=== PATIENT | male | born 1955 | race Caucasian/White ===

== ENCOUNTER 2020-05-15 00:43 | Observation (INO) ==
[2020-05-15] MEDS ORDERED: ACETAMINOPHEN 325 MG TABLET PO PRN (01:03)
[2020-05-15] MEDS ORDERED: oxyCODONE HCL/ACETAMINOPHEN 1 TAB TABLET PO PRN (01:13)
[2020-05-15] MEDS ORDERED: ENOXAPARIN SODIUM 40 MG/0.4 ML SYRG SC SCH (01:15)
[2020-05-15] MEDS ORDERED: NITROGLYCERIN 0.4 MG/TAB BTL SL PRN (01:33)
--- NOTE | 2020-05-15 01:40 | HP ---
Chief Complaint - Chief Complaint Date of Service: 05/15/20 Time of Service: 01:21 Chief Complaint: I cannot breathe History of Present Illness: 65-year-old male with past medical history of COPD, former smoker, CHF, CAD, chronic pain, hypertension, atrial fibrillation, obesity, hyperlipidemia, was transferred to our facility from [facility] for treatment of a COPD exacerbation. Patient went to the ER at [facility] due to worsening shortness of breath despite his usual nasal cannula over the past 3 days. Patient has been seen in the ER frequently for the same symptoms and usually ends up being hospitalized and ending up on BiPAP, ERP reports on one occasion he had to be intubated for respiratory failure. The patient came in earlier yesterday with respiratory issues that consisted of dyspnea and respiratory failure, he was started on a BiPAP machine which he is tolerating without any issues. Normally, the patient uses nasal cannula at 3 L during the day and at night he uses a BiPAP machine. He reports his symptoms were not improving with at home therapies such as his inhalers and breathing treatments so then he came to the ER. He denies any fever at the moment and was swabbed for COVID-19 which was negative. The patient has a history of CHF but his BNP was only 295, it is difficult to discern whether or not he has crackles and he only has mild pedal edema. His clinical picture is more consistent with a COPD exacerbation than a decompensated CHF, however mild diuresis would be beneficial to decrease the preload and to make breathing easier for the patient. So we will order multiple doses of furosemide to be administered during hospitalization. Medical History (Last Updated 05/15/20 @ 00:56 by Pat Brizuela RN) Atrial fibrillation COPD (chronic obstructive pulmonary disease) Chronic pain Heart failure Hyperlipidemia Hypertension Macrocytic anemia Obesity Respiratory failure Peds Patient Hx - Developmental: No Pertinent Hx Peds Patient Hx - Medical: No Pertinent Hx Peds Patient Hx - Cardiac/Respiratory: No Pertinent Hx Peds Patient Hx - Surgical: No Surgical History Patient History - Cancer: No Hx of Cancer Review Of Systems (GEN) - Review of Systems Generalized/Overall Review: Present: No Symptoms Reported EENTM: Present: No Symptoms Reported Respiratory: Present: Shortness of Breath Cardiac: Present: No Symptoms Reported Abdominal: Present: No Symptoms Reported Genitourinary: Present: No Symptoms Reported Musculoskeletal: Present: No Symptoms Reported Neurological: Present: No Symptoms Reported Skin: Present: No Symptoms Reported Endocrine: Present: No Symptoms Reported Allergies/Adverse Reactions: Allergies Allergy/AdvReac Type Severity Reaction Status Date / Time amoxicillin Allergy Unknown Verified 05/15/20 00:57 morphine Allergy Verified 05/15/20 00:57 Home Medications: HOME MEDICATIONS Atorvastatin Calcium 80 mg PO DAILY 05/15/20 [Last Taken Unknown] Exam - Exam Constitutional: Present: Alert, Oriented x3, Cooperative, Well developed, Well nourished, No distress, Obese ENT Exam: Present: normal ENT inspection, hearing grossly normal Eye Exam: bilateral eye: normal inspection, PERRL, EOMI Neck: Present: non-tender, full range of motion, supple, normal inspection, trachea midline Back Exam: Present: normal inspection, no CVA tenderness, no vertebral tenderness Breasts: Present: Exam deferred Respiratory: Present: respiratory distress - Patient is currently on BiPAP for dyspnea, decreased breath sounds Cardiovascular/Chest: Present: normal peripheral pulses, no chest tenderness, no gallop, no JVD, no murmur, irregularly irregular, edema - 1+ pedal edema bilaterally Peripheral Pulses: dorsalis-pedis (R): 3+, dorsalis-pedis (L): 3+ Abdomen: Present: Normal bowel sounds, soft, nontender, nondistended, no rebound tenderness, no hepatospenomegaly, no masses, obese /Rectal: Present: Exam deferred Extremity: Present: normal range of motion, non-tender, no calf tenderness, normal capillary refill, pedal edema Skin Exam: Present: normal color, warm/dry, no cyanosis Lymphatic: Present: no adenopathy Neurologic: Present: 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 He is currently on a BiPAP machine which he is tolerating without any issues, we will keep him on the machine overnight and see how he does. Attempt to wean in the morning if appropriate will be made. In the meantime we will treat him with multiple doses of furosemide in order to diurese the patient given the pedal edema presentation. Will also be treated with breathing treatments [id number] and other to optimize his respiratory function. - Assessment/Plan (1) COPD exacerbation Problem: Acute (2) CHF (congestive heart failure) Problem: Acute (3) Atrial fibrillation Problem: Chronic (4) Hyperlipemia Problem: Chronic (5) Chronic pain Problem: Chronic (6) Former smoker Problem: Chronic (7) Obesity Problem: Chronic (8) Respiratory failure with hypercapnia Problem: Acute (9) Acute respiratory acidosis Problem: Acute
[2020-05-15] MEDS: ALBUTEROL SULFATE/IPRATROPIUM 3 ML NEBU IH SCH ×6 (02:49→22:43)
[2020-05-15] MEDS ORDERED: LEVOFLOXACIN 500 MG TABLET PO ONE (03:00)
[2020-05-15] MEDS: FUROSEMIDE 10 MG/ML VIAL IV SCH ×2 (03:23→13:40)
[2020-05-15] MEDS: METHYLPREDNISOLONE SOD SUCC/PF 125 MG/2 ML VIAL IV SCH ×2 (03:24→10:10)
[2020-05-15 06:20] LABS: Hematocrit 27.2 % (42.0-52.0); Hemoglobin 8.1 gm/dL (13.5-18.0); Mean Cell Volume 98.6 fl (78-100); Mean Corpuscular Hemoglobin 29.3 pg (27-31); Mean Corpuscular Hgb Conc 29.8 g/dl (32-36); Mean Platelet Volume 8.9 fl (8-11.3); Neutrophil # 5.6 K/mm3 (1.3-6.0); Neutrophil % 90.8 % (42-75.0); Platelet Count 158 K/mm3 (150-450); Red Blood Count 2.76 M/mm3 (4.7-6.0); Red Cell Distribution Width 16.4 % (11.5-14.0); White Blood Count 6.1 K/mm3 (4.0-10.5)
[2020-05-15 06:38] LABS: Albumin * 2.6 gm/dl (3.4-5.0); BUN/Creatinine Ratio 19.2 (9.0-21.6); Bilirubin, Total 0.3 mg/dL (0.0-1.1); Ca. Corrected For Albumin 8.8 mg/dL (8.4-10.2); Carbon Dioxide 37.3 mmol/L (24-32.6); Potassium 4.3 mmol/L (3.4-4.6)
[2020-05-15] MEDS ORDERED: METHYLPREDNISOLONE SOD SUCC/PF 125 MG/2 ML VIAL IV SCH (08:30)
[2020-05-15] MEDS ORDERED: SODIUM CHLORIDE 45 SPRAY BTL NS SCH (09:00)
[2020-05-15] MEDS: ROSUVASTATIN CALCIUM 20 MG TABLET PO SCH (09:15)
[2020-05-15] MEDS: APIXABAN 5 MG TABLET PO SCH ×2 (09:15→20:31)
[2020-05-15] MEDS: PANTOPRAZOLE SODIUM 20 MG TABLET.DR PO SCH ×2 (09:15→20:33)
[2020-05-15] MEDS: SOTALOL HCL 80 MG TABLET PO SCH ×2 (09:18→20:31)
[2020-05-15] MEDS ORDERED: ALBUTEROL SULFATE 2.5 MG/0.5 ML VIAL.NEB IH PRN (11:43)
--- NOTE | 2020-05-15 12:20 | DS ---
(1) COPD exacerbation Problem: Acute (2) CHF (congestive heart failure) Problem: Acute (3) Atrial fibrillation Problem: Chronic (4) Hyperlipemia Problem: Chronic (5) Chronic pain Problem: Chronic (6) Former smoker Problem: Chronic (7) Obesity Problem: Chronic (8) Respiratory failure with hypercapnia Problem: Acute (9) Acute respiratory acidosis Problem: Acute Date of Discharge:: 05/15/20 Hospital Course: 65-year-old male admitted for COPD exacerbation, respiratory failure, and decompensated CHF was evaluated at bedside this morning was found to be afebrile and in no acute distress. Patient's respiratory function appears to be improving, however attempts to wean him off the BiPAP this morning failed so we had to place him back on. He told me this morning normally he uses BiPAP at night and nasal cannula at 3 L during the day, however he does report occasionally needing to use the BiPAP during the day. ABG done this morning showed improvement in his blood gases, CO2 has decreased compared to when he arrived and appears to be around his baseline. His saturation is now normal. The patient has been treated with antibiotics, IV diuretics, and breathing treatments with DuoNeb [id number] and this treatment appears to have been beneficial. We will once again attempt to wean him off the BiPAP to see if we can get him down to his baseline, if we are successful we will discharge patient home with instructions to return to his normal treatment. He will also be provided with a prescription for additional days of p.o. antibiotics and p.o. steroids. He currently lives with his who helps with his activities of daily living and he also has home health that was previously established, will send instructions to all parties involved for better maintenance of the patient's health. The patient was instructed to follow-up with his PCP in 5 days. Procedures Performed: none Results and Findings: Lab Pending Results 05/15/20 01:30: pCO2 71.7 H*, pO2 94.8, HCO3 35.0 H, Total CO2 37.2 H, Base Excess 7.2 H, ABG pH 7.31 L, ABG O2 Sat (Measured) 96.3 05/15/20 02:45: pCO2 70.8 H*, pO2 114.6 H, HCO3 34.9 H, Total CO2 37.1 H, Base Excess 7.3 H, ABG pH 7.31 L, ABG O2 Sat (Measured) 97.6 05/15/20 05:55: WBC 6.1, RBC 2.76 L, Hgb 8.1 L, Hct 27.2 L, MCV 98.6, MCH 29.3, MCHC 29.8 L, RDW 16.4 H, Plt Count 158, MPV 8.9, Immature Gran % (Auto) 0.70 H, Immature Gran # (Auto) 0.04 H, Neutrophils % 90.8 H, Lymphocytes % 6.5 L, Monocytes % 1.6, Eosinophils % 0.2, Basophils % 0.2, Nucleated RBC % 0.0, Neutrophils # 5.6, Lymphocytes # 0.40 L, Monocytes # 0.1, Eosinophils # 0.0, Absolute Basophils 0.0 05/15/20 05:55: Sodium 140, Plasma Sodium 141, Potassium 4.3, Chloride 101, Carbon Dioxide 37.3 H, Anion Gap 6.0 L, BUN 25 H, Creatinine 1.30, Est GFR (Non- Af Amer) 59 L, BUN/Creatinine Ratio 19.2, Random Glucose 151 H, Calcium 8.0, Calcium Adj for Albumin 8.8, Total Bilirubin 0.3, AST 12, ALT 22, Alkaline Phosphatase 72, Total Protein 6.0 L, Albumin 2.6 L 05/15/20 08:15: pCO2 58.1 H, pO2 159.8 H, HCO3 34.2 H, Total CO2 36.0 H, Base Excess 7.2 H, ABG pH 7.39, ABG O2 Sat (Measured) 99.0 H Discharge Location: Home Disposition: Home self-care Condition: Stable Face to Face Encounter completed per CMS Guidelines: No Discharge Activity: Activity as tolerated Discharge Diet: Low salt Additional Patient Instructions (free text): [facility] at discharge- fax discharge summary, orders, and medication list and call report. Prescriptions (Any new or edited meds): Levofloxacin [Levaquin] 500 mg PO DAILY 3 Days #3 tab Transmission [place] pred[place] [Prednisone] See Taper PO DAILY #6 tab Complete Home Medications List: Complete Home Medication List: Albuterol Sulfate [Albuterol Sulfate 0.63 MG/3ML] 0.63 mg INHALATION Q4H PRN 05/15/20 Albuterol Sulfate [Proair HFA] 2 puff INHALATION Q6H PRN 05/15/20 Albuterol Sulfate/Ipratropium [Duoneb 2.5-0.5MG/3ML Soln] 3 ml INHALATION QID 05/15/20 Apixaban [Eliquis] 5 mg PO BID 05/15/20 Ascorbic Acid [Vitamin C] 500 mg PO DAILY 05/15/20 Atorvastatin Calcium 80 mg PO DAILY 05/15/20 Budesonide/Formoterol Fumarate [Symbicort 160-4.5 Mcg Inhaler] 2 puff INHALATION BID 05/15/20 Cyanocobalamin [Vitamin B-12] 1,000 mcg PO DAILY 05/15/20 Docusate Sodium [Colace] 100 mg PO BID 05/15/20 Famotidine 20 mg PO BID 05/15/20 Ferrous Sulfate 325 mg PO BID 05/15/20 Fluticasone Propionate [Flonase] 2 spray NS BID 05/15/20 Furosemide 20 mg PO DAILY 05/15/20 HYDROcodone/ACETAMINOPHEN [Hydrocodone-Acetamin 5-325 mg] 1 ea PO Q4H PRN 05/15/20 Levofloxacin [Levaquin] 500 mg PO DAILY 3 Days #3 tab 05/15/20 Nitroglycerin 0.4 mg SUBLINGUAL Q5MIN PRN 05/15/20 Sodium Chloride [Saline Nasal Mist] 126 ml NS QID 05/15/20 Sotalol HCl [Betapace AF] 120 mg PO BID 05/15/20 guaiFENesin [Mucinex] 600 mg PO DAILY 05/15/20 predniSONE [Prednisone] See Taper PO DAILY #6 tab 05/15/20 Forms: Patient Portal Registration
[2020-05-15] MEDS: FLUTICASONE PROPIONATE 120 SPRAY INHALER NS SCH ×2 (12:24→20:30)
[2020-05-15] MEDS: SODIUM CHLORIDE 45 SPRAY BTL NS SCH ×3 (12:25→20:34)
[2020-05-15] MEDS: FERROUS SULFATE 325 MG TABLET PO SCH ×2 (13:40→20:32)
[2020-05-15] MEDS: DOCUSATE SODIUM 100 MG CAPSULE PO SCH ×2 (13:40→20:29)
[2020-05-15] MEDS: CYANOCOBALAMIN 1,000 MCG TABLET PO SCH (13:40)
[2020-05-15] MEDS: predniSONE 10 MG TABLET PO SCH (13:40)
[2020-05-15] MEDS ORDERED: CYCLOBENZAPRINE HCL 10 MG TABLET PO PRN (18:56)
[2020-05-15] MEDS: HYDROcodone/ACETAMINOPHEN 1 EACH TABLET PO PRN (20:28)
[2020-05-15] MEDS ORDERED: FLUTICASONE PROPION/SALMETEROL 14 PUFF DISK.W.DEV IH SCH (21:00)
[2020-05-16] MEDS: FUROSEMIDE 10 MG/ML VIAL IV SCH (01:30)
[2020-05-16] MEDS: ALBUTEROL SULFATE/IPRATROPIUM 3 ML NEBU IH SCH ×3 (02:32→10:31)
[2020-05-16] MEDS: HYDROcodone/ACETAMINOPHEN 1 EACH TABLET PO PRN ×2 (03:29→08:11)
[2020-05-16] MEDS: PANTOPRAZOLE SODIUM 20 MG TABLET.DR PO SCH (07:14)
[2020-05-16] MEDS: FLUTICASONE PROPIONATE 120 SPRAY INHALER NS SCH (08:15)
[2020-05-16] MEDS: SOTALOL HCL 80 MG TABLET PO SCH (08:16)
[2020-05-16] MEDS: CYANOCOBALAMIN 1,000 MCG TABLET PO SCH (08:16)
[2020-05-16] MEDS: DOCUSATE SODIUM 100 MG CAPSULE PO SCH (08:16)
[2020-05-16] MEDS: FERROUS SULFATE 325 MG TABLET PO SCH (08:17)
[2020-05-16] MEDS: APIXABAN 5 MG TABLET PO SCH (08:17)
[2020-05-16] MEDS: ROSUVASTATIN CALCIUM 20 MG TABLET PO SCH (08:18)
[2020-05-16] MEDS: SODIUM CHLORIDE 45 SPRAY BTL NS SCH (08:20)
[2020-05-16] MEDS: predniSONE 10 MG TABLET PO SCH (08:22)
[2020-05-16] MEDS ORDERED: TIOTROPIUM BROMIDE 5 CAP INHALER IH SCH (09:00)
--- NOTE | 2020-05-16 10:39 | DS ---
(1) COPD exacerbation Problem: Resolved (2) CHF (congestive heart failure) Problem: Acute (3) Atrial fibrillation Problem: Chronic (4) Hyperlipemia Problem: Chronic (5) Chronic pain Problem: Chronic (6) Former smoker Problem: Chronic (7) Obesity Problem: Chronic (8) Respiratory failure with hypercapnia Problem: Resolved (9) Acute respiratory acidosis Problem: Resolved Date of Discharge:: 05/16/20 Hospital Course: 65-year-old male admitted for COPD exacerbation, respiratory failure, and decompensated CHF was evaluated at bedside this morning was found to be afebrile and in no acute distress. Patient's respiratory failure has resolved, we were finally able to wean him off the BiPAP and now he is on nasal cannula at his baseline. Patient reports having less difficulty breathing but is still somewhat short of breath, it was explained to him that this is most likely due to the progression of COPD so recommendations to follow-up with his p ulmonologist was made. It turns out the patient had an appointment to see the food counselor yesterday but because of the hospitalization he missed the appointment, case management is attempting to reschedule it so he can be seen soon. It was explained to patient that his COPD has progressed significantly which would explain the recent hospitalizations and his increased need of being on a BiPAP. Thankfully due to the treatment with the high-dose steroids, antibiotics, and breathing treatments he has responded well to but I fear that he will be hospitalized again due to the worsening of his COPD. The patient normally seen at the [facility] so we are making arrangements for him to be followed up on soon to avoid further hospitalization. He will be discharged home today with additional days of antibiotics, p.o. steroids, and breathing treatments. The patient already had home health services set up. Procedures Performed: none Results and Findings: Lab Pending Results 05/15/20 01:30: pCO2 71.7 H*, pO2 94.8, HCO3 35.0 H, Total CO2 37.2 H, Base Excess 7.2 H, ABG pH 7.31 L, ABG O2 Sat (Measured) 96.3 05/15/20 02:45: pCO2 70.8 H*, pO2 114.6 H, HCO3 34.9 H, Total CO2 37.1 H, Base Excess 7.3 H, ABG pH 7.31 L, ABG O2 Sat (Measured) 97.6 05/15/20 05:55: WBC 6.1, RBC 2.76 L, Hgb 8.1 L, Hct 27.2 L, MCV 98.6, MCH 29.3, MCHC 29.8 L, RDW 16.4 H, Plt Count 158, MPV 8.9, Immature Gran % (Auto) 0.70 H, Immature Gran # (Auto) 0.04 H, Neutrophils % 90.8 H, Lymphocytes % 6.5 L, Monocytes % 1.6, Eosinophils % 0.2, Basophils % 0.2, Nucleated RBC % 0.0, Neutrophils # 5.6, Lymphocytes # 0.40 L, Monocytes # 0.1, Eosinophils # 0.0, Absolute Basophils 0.0 05/15/20 05:55: Sodium 140, Plasma Sodium 141, Potassium 4.3, Chloride 101, Carbon Dioxide 37.3 H, Anion Gap 6.0 L, BUN 25 H, Creatinine 1.30, Est GFR (Non- Af Amer) 59 L, BUN/Creatinine Ratio 19.2, Random Glucose 151 H, Calcium 8.0, Calcium Adj for Albumin 8.8, Total Bilirubin 0.3, AST 12, ALT 22, Alkaline Phosphatase 72, Total Protein 6.0 L, Albumin 2.6 L 05/15/20 08:15: pCO2 58.1 H, pO2 159.8 H, HCO3 34.2 H, Total CO2 36.0 H, Base Excess 7.2 H, ABG pH 7.39, ABG O2 Sat (Measured) 99.0 H Discharge Location: Home Disposition: Home Health Service Home Health Agency: [facility] Condition: Stable Face to Face Encounter completed per CMS Guidelines: No Discharge Activity: Activity as tolerated Discharge Diet: General/regular food Additional Patient Instructions (free text): Resume [facility] at discharge- fax discharge summary, orders, and medication list and call report. Prescriptions (Any new or edited meds): Cyclobenzaprine HCl [Flexeril] 10 mg PO TID PRN #30 tab PRN Reason: Muscle Spasm Transmission Status: Pending to [place], [place] Levofloxacin [Levaquin] 500 mg PO DAILY #2 tab Transmission Status: Pending to [place], [place] HYDROcodone/ACETAMINOPHEN [[place] 5-325] 1 each PO Q4H PRN #30 tablet PRN Reason: Pain Transmission Status: [place] Prednisone See Taper PO DAILY #20 tab Prescription Printed Complete Home Medications List: Complete Home Medication List: Albuterol Sulfate [Albuterol Sulfate 0.63 MG/3ML] 0.63 mg INHALATION Q4H PRN 05/15/20 Albuterol Sulfate [Proair HFA] 2 puff INHALATION Q6H PRN 05/15/20 Albuterol Sulfate/Ipratropium [Duoneb 2.5-0.5MG/3ML Soln] 3 ml INHALATION QID 05/15/20 Apixaban [Eliquis] 5 mg PO BID 05/15/20 Ascorbic Acid [Vitamin C] 500 mg PO DAILY 05/15/20 Atorvastatin Calcium 80 mg PO DAILY 05/15/20 Budesonide/Formoterol Fumarate [Symbicort 160-4.5 Mcg Inhaler] 2 puff INHALATION BID 05/15/20 Cyanocobalamin [Vitamin B-12] 1,000 mcg PO DAILY 05/15/20 Docusate Sodium [Colace] 100 mg PO BID 05/15/20 Famotidine 20 mg PO BID 05/15/20 Ferrous Sulfate 325 mg PO BID 05/15/20 Fluticasone Propionate [Flonase] 2 spray NS BID 05/15/20 Furosemide 20 mg PO DAILY 05/15/20 HYDROcodone/ACETAMINOPHEN [Hydrocodone-Acetamin 5-325 mg] 1 ea PO Q4H PRN 05/15/20 Nitroglycerin 0.4 mg SUBLINGUAL Q5MIN PRN 05/15/20 Sodium Chloride [Saline Nasal Mist] 126 ml NS QID 05/15/20 Sotalol HCl [Betapace AF] 120 mg PO BID 05/15/20 guaiFENesin [Mucinex] 600 mg PO DAILY 05/15/20 Cyclobenzaprine HCl [Flexeril] 10 mg PO TID PRN #30 tab 05/16/20 HYDROcodone/ACETAMINOPHEN [[place] 5-325] 1 ea PO Q4H PRN #30 tab 05/16/20 Levofloxacin [Levaquin] 500 mg PO DAILY #2 tab 05/16/20 Prednisone See Taper PO DAILY #20 tab 05/16/20 predniSONE [Prednisone] 50 mg PO DAILY #20 tab 05/16/20 Forms: Patient Portal Registration
[2020-05-16] MEDS ORDERED: LEVOFLOXACIN 500 MG TABLET PO SCH (11:00)
[2020-05-16 13:18] VITALS: BP 130/71
== END 2020-05-16 13:42 | disposition home health service (06) ==
LOC: MS 00:43 → INTOOBSV 00:43
PROVIDERS: ADMIT Family Medicine; ATTEND Family Medicine